=== PATIENT | male | born 1935 | race Caucasian/White ===

== ENCOUNTER 2018-08-08 16:25 | Emergency (ER) | payer MEDICARE ==
--- NOTE | 2018-08-08 19:36 | ED ---
HPI Cardiac - HPI Summary HPI Summary: This patient is a 82 year old male presenting to [facility] with a chief complaint of palpitations since 3 days ago. Patient states that he feels lousy. He states that his palpitations come accompanied with SOB and dizziness. Patient states the palpitations are not constant, but occurs regularly with exertion. Patient denies any pain related to the palpitations. Symptoms aggravated by exertion, movement. Symptoms alleviated by nothing. Patient additionally states that he has recently come off of a steroid course for his chronic back pain. Patient denies any cardiac history except HTN. - History of Current Complaint Chief Complaint: EDDysrhythmPalp Stated Complaint: HIGH HEART RATE Time Seen by Provider: 08/08/18 19:21 Hx Obtained From: Patient Onset/Duration: Started Days Ago, Still Present Timing: Intermittent Initial Severity: Mild Current Severity: None Pain Intensity: 0 Pain Scale Used: 0-10 Numeric Chest Pain Radiates: No Aggravating Factor(s): Exertion, Movement Alleviating Factor(s): Nothing Associated Signs and Symptoms: Positive: Other: - back pain, dizziness, SOB - Allergy/Home Medications Allergies/Adverse Reactions: Allergies Allergy/AdvReac Type Severity Reaction Status Date / Time No Known Allergies Allergy Verified 08/08/18 16:38 PMH/Surg Hx/FS Hx/Imm Hx Previously Healthy: Yes Cardiovascular History: Reports: Hx Hypertension Opthamlomology History: Denies: Hx Legally Blind EENT History: Denies: Hx Deafness Infectious Disease History: No Infectious Disease History: Denies: Traveled Outside the [place] in Last 30 Days - Family History Known Family History: Positive: Hypertension - Social History Alcohol Use: Rare Hx Substance Use: No Substance Use Type: Reports: None Hx Tobacco Use: Yes Smoking Status (MU): Former Smoker Review of Systems Negative: Fever Negative: Chest Pain Positive: Shortness Of Breath Positive: Other - back pain Neurological: Other - dizziness All Other Systems Reviewed And Are Negative: Yes Physical Exam - Summary Physical Exam Summary: VITAL SIGNS: Reviewed. GENERAL: Patient is a well-developed and morbidly obese male who is lying comfortable in the stretcher. Patient is not in any acute respiratory distress. HEAD AND FACE: No signs of trauma. No ecchymosis, hematomas or skull depressions. No sinus tenderness. EYES: PERRLA, EOMI x 2, No injected conjunctiva, no nystagmus. EARS: Hearing grossly intact. Ear canals and tympanic membranes are within normal limits. MOUTH: Oropharynx within normal limits. NECK: Supple, trachea is midline, no adenopathy, no JVD, no carotid bruit, no c- spine tenderness, neck with full ROM. CHEST: Symmetric, no tenderness at palpation LUNGS: Clear to auscultation bilaterally. No wheezing or crackles. CVS: Regular rate and rhythm, S1 and S2 present, no murmurs or gallops appreciated. ABDOMEN: Soft, non-tender. No signs of distention. No rebound no guarding, and no masses palpated. Bowel sounds are normal. EXTREMITIES: FROM in all major joints. 1+ bilateral lower extremity edema. NEURO: Alert and oriented x 3. No acute neurological deficits. Speech is normal and follows commands. SKIN: Dry and warm Triage Information Reviewed: Yes Vital Signs On Initial Exam: Initial Vitals Temp Pulse Resp BP Pulse Ox 98.7 F 97 18 152/82 96 08/08/18 16:34 08/08/18 16:34 08/08/18 16:34 08/08/18 16:34 08/08/18 16:34 Vital Signs Reviewed: Yes Diagnostics - Vital Signs Vital Signs Temp Pulse Resp BP Pulse Ox 08/08/18 19:00 93 13 97 08/08/18 18:48 85 15 142/77 96 08/08/18 16:34 98.7 F 97 18 152/82 96 - Laboratory Result Diagrams: 08/08/18 19:41 08/08/18 19:41 Lab Statement: Any lab studies that have been ordered have been reviewed, and results considered in the medical decision making process. - Radiology CXR Radiology Interpretation Completed By: ED Physician Summary of Radiographic Findings: No acute disease. Pending official report. - CT CTA Chest CT Interpretation Completed By: Radiologist Summary of CT Findings: CTA reveals, 1. No acute findings or evidence of pulmonary embolus to the lobar level. However, smaller peripheral vessels cannot be assessed due to bolus timing and. motion artifact. 2. 2 small right lung nodules, likely small lymph nodes. Per Fleischner. Society Criteria, if the patient has no risk factors such as smoking or cancer,. no further workup is indicated. If they do have risk factors for cancer,. followup CT is suggested in one year to assess stability. 3. Coronary artery disease. Top normal heart size. ED Physician has reviewed this report. - EKG 1644 Cardiac Rate: NL EKG Rhythm: Sinus Rhythm - 91 BPM Summary of EKG Findings: An EKG, taken 1644, reveals NSR (91 BPM), Nonspecific t wave in inferior leads, Normal intervals, normal axis. Disposition - Course Course Of Treatment: This patient is a 82 year old male presenting to [facility] with a chief complaint of palpitations since 3 days ago. Patient states that he feels lousy. He states that his palpitations come accompanied with SOB and dizziness. Patient states the palpitations are not constant, but occurs regularly with exertion. Patient denies any pain related to the palpitations. Symptoms aggravated by exertion, movement. Symptoms alleviated by nothing. Patient additionally states that he has recently come off of a steroid course for his chronic back pain. Patient denies any cardiac history except HTN.CXR reveals, No acute disease. Pending official report. CTA reveals, 1. No acute findings or evidence of pulmonary embolus to the lobar level. However, smaller peripheral vessels cannot be assessed due to bolus timing and. motion artifact. 2. 2 small right lung nodules, likely small lymph nodes. Per Fleischner. Society Criteria, if the patient has no risk factors such as smoking or cancer,. no further workup is indicated. If they do have risk factors for cancer,. followup CT is suggested in one year to assess stability. 3. Coronary artery disease. Top normal heart size. Bloodwork obtained. The patient will be discharge and will f/u with cardiology to receive a halter monitor. - Diagnoses Provider Diagnoses: Heart palpitations Discharge - Sign-Out/Discharge Documenting (check all that apply): Patient Departure - Discharge Plan Condition: Stable Disposition: HOME Patient Education Materials: Heart Palpitations (DC) Referrals: Miguel Ring DO [Medical Doctor] - As Soon As Possible Additional Instructions: Follow up with your information delivery analyst as soon as possible in order to receive a halter monitor. Follow up with your primary care physician in 1-3 days. RETURN TO THE EMERGENCY DEPARTMENT FOR CHANGING OR WORSENING SYMPTOMS. - Attestation Statements Document Initiated by Scribe: Yes Documenting Scribe: Stefany Chen Provider For Whom Scribe is Documenting (Include Credential): MD Geovanni Wilson Attestation: IStefany, scribed for Gian Car MD on 08/08/18 at 2321. Status of Scribe Document: Ready
[2018-08-08 19:51] LABS: ABS Basophils 0.1 10^3/ul (0-0.2); ABS Eosinophils 0.3 10^3/ul (0-0.6); ABS Lymphocytes 2.4 10^3/ul (1.0-4.8); ABS Monocytes 1.1 10^3/ul (0-0.8); ABS Neutrophils 7.3 10^3/ul (1.5-7.7); ABS Nucleated RBC 0 10^3/ul; Eosinophil % 2.4 %; Hematocrit 43 % (42-52); Hemoglobin 14.1 g/dl (14.0-18.0); Lymphocyte % 21.2 %; Mean Corpuscular HGB Conc 33 g/dl (31-36); Mean Corpuscular Hemoglobin 30 pg (27-31); Mean Corpuscular Volume 91 fL (80-94); Mean Platelet Volume 9.8 fL (7.4-10.4); Nucleated Red Blood Cells % 0.1; Platelet Count 149 10^3/ul (150-450); Red Blood Count 4.67 10^6/ul (4.00-5.40); Red Cell Distribution Width 15 % (10.5-15); White Blood Count 11.2 10^3/ul (3.5-10.8)
[2018-08-08 20:02] LABS: INR 0.94 (0.77-1.02)
[2018-08-08 20:10] LABS: EGFR Non-African American 58.5 (>60)
[2018-08-08] MEDS ORDERED: Iodixanol* (CONTRAST) 320 MG/ML 100 ML SDV IV ONE (21:18)
[2018-08-08 23:05] VITALS: BP 118/70
== END 2018-08-08 23:08 | disposition home or self-care (01) ==
LOC: ED 16:25
DX: R00.2 Palpitations (principal); I10 Essential (primary) hypertension; I25.10 Atherosclerotic heart disease of native coronary artery without angina pectoris; Z87.891 Personal history of nicotine dependence
CPT/HCPCS: 36415; 71045; 71275; 80053; 83735; 83880; 84443; 84484; 85025; 85379; 85610; 85730; 93005; 96374; 99283; Q9967

== ENCOUNTER 2019-10-25 08:37 | Day surgery (SDC) | payer MEDICARE ==
[~2019-10-25 08:37] MED LIST: Acetaminophen TAB* 325 MG PO PRN; Buffered Lidocaine 1% SYRIN* 1 ML/SYRINGE INTRADERM ONE
[2019-10-25] MEDS ORDERED: Cyclopentolate 1% OPTH.SOL* 2 ML BTL ONE (09:20)
[2019-10-25] MEDS ORDERED: Proparacaine 0.5% OPHTH.SOL* 15 ML BTL ONE (09:20)
[2019-10-25] MEDS ORDERED: Ketorolac 0.5% OPHTH (NF) 0.5 % 5 ML BTL ONE (09:20)
[2019-10-25] MEDS ORDERED: Neomycin/Polymy/Dex OPTH.SUSP* MAXITROL 0.1% 5 ML ONE (09:20)
[2019-10-25] MEDS ORDERED: Povidone Iodine 5% OPTH* 30 ML BTL ONE (09:20)
[2019-10-25] MEDS ORDERED: Lidocaine 1% MPF ** 5 ML VIAL ONE (09:20)
[2019-10-25] MEDS ORDERED: Phenylephrine OPHTH SOL 2.5%* 2 ML ONE (09:20)
[2019-10-25] MEDS ORDERED: acetaZOLAMIDE TAB* 250 MG ONE (09:20)
[2019-10-25] MEDS ORDERED: Lidocaine 2% w/ EPI 1:200,000* 20 ML SDV VIAL ONE (09:20)
[2019-10-25] MEDS ORDERED: Midazolam* 1 MG/ML 2 ML VIAL (2 MG) ONE (10:35)
[2019-10-25 11:33] VITALS: BP 125/59
--- NOTE | 2019-10-25 14:52 | OP ---
DATE OF OPERATION: 10/25/19 [facility] DATE OF : 35 SURGEON: Parrish Patricio M.D. PREOPERATIVE DIAGNOSIS: Cataract and glaucoma, right eye. POSTOPERATIVE DIAGNOSIS: Cataract and glaucoma, right eye. OPERATIVE PROCEDURE: Extracapsular cataract extraction with intraocular lens implant and iStent, right eye. DESCRIPTION OF PROCEDURE: The patient was brought to the operating room after being given 1/2% Alcaine with epinephrine drops in the preoperative area. The eye was prepped and draped in the usual sterile fashion. Sterile drape and eyelid speculum were placed. Again, topical 1/2% Alcaine with epinephrine was given. A paracentesis incision was made at the 9 o'clock position with the No.75 blade. Clear cornea incision 2.2 x 2.2-mm was created at the 12 o'clock position starting at the anterior limbus using the 2.2-mm keratome. The anterior chamber was irrigated with 0.4 mL of 1% non-preservative intracameral lidocaine and filled with DisCoVisc. A capsulorrhexis was completed using the cystotome and the Utrata forceps. Hydrodissection was performed with balanced salt solution. The lens nucleus was removed with the Phacoemulsification handpiece without incident. Cortex was removed with the irrigation-aspiration handpiece. The capsular bag was re-inflated using DisCoVisc and an [id number] 18.5 implant was inserted with the shooter followed by iStent inject inserted into the 2 and 4 o'clock positions with the shooter. The irrigation-aspiration handpiece was used to remove all residual DisCoVisc. The eye was refilled with balanced salt solution and the wound checked and found to be watertight. Topical Maxitrol drops were given. [id number]/[facility] #: [id number] MTDD
== END 2019-10-25 11:45 | disposition home or self-care (01) ==
LOC: OREAST 08:37
PROVIDERS: ATTEND Specialist
DX: H25.811 Combined forms of age-related cataract, right eye (principal); H40.1111 Primary open-angle glaucoma, right eye, mild stage; I10 Essential (primary) hypertension; E03.9 Hypothyroidism, unspecified; K21.9 Gastro-esophageal reflux disease without esophagitis; Z85.46 Personal history of malignant neoplasm of prostate; M10.9 Gout, unspecified; Z87.891 Personal history of nicotine dependence
CPT/HCPCS: A9270-GY; C1783; J2250; V2632

== ENCOUNTER 2019-11-01 07:07 | Day surgery (SDC) | payer MEDICARE ==
[2019-11-01] MEDS ORDERED: Propofol* 10 MG/ML 20 ML BTL ONE (08:45)
[2019-11-01] MEDS ORDERED: Lidocaine 2% PF * 5 ML VIAL ONE (08:45)
[2019-11-01] MEDS ORDERED: Phenylephrine OPHTH SOL 2.5%* 2 ML ONE (09:31)
[2019-11-01] MEDS ORDERED: Povidone Iodine 5% OPTH* 30 ML BTL ONE (09:31)
[2019-11-01] MEDS ORDERED: Ketorolac 0.5% OPHTH (NF) 0.5 % 5 ML BTL ONE (09:31)
[2019-11-01] MEDS ORDERED: Cyclopentolate 1% OPTH.SOL* 2 ML BTL ONE (09:31)
[2019-11-01] MEDS ORDERED: Lidocaine 1% MPF ** 5 ML VIAL ONE (09:31)
[2019-11-01] MEDS ORDERED: acetaZOLAMIDE TAB* 250 MG ONE (09:31)
[2019-11-01] MEDS ORDERED: Neomycin/Polymy/Dex OPTH.SUSP* MAXITROL 0.1% 5 ML ONE (09:31)
[2019-11-01] MEDS ORDERED: Proparacaine 0.5% OPHTH.SOL* 15 ML BTL ONE (09:31)
[2019-11-01] MEDS ORDERED: Lidocaine 2% w/ EPI 1:200,000* 20 ML SDV VIAL ONE (09:31)
[2019-11-01 10:01] VITALS: BP 126/53
--- NOTE | 2019-11-01 11:38 | OP ---
DATE OF OPERATION: 11/01/2019. DATE OF : 1935. SURGEON: Parrish Patricio M.D. PREOPERATIVE DIAGNOSIS: Cataract left eye. POSTOPERATIVE DIAGNOSIS: Cataract left eye. OPERATIVE PROCEDURE: Extracapsular cataract extraction with intraocular lens implant left eye. PROCEDURE: The patient was brought to the operating room after being given 1/2% Alcaine with epineph rine drops in the preoperative area. The eye was prepped and draped in the usual sterile fashion. S terile drape and eyelid speculum were placed. Again, topical 1/2% Alcaine with epinephrine was given . A paracentesis incision was made at the 3 o'clock position with the No.75 blade. Clear cornea inc ision 2.2 x 2.2-mm was created at the 6 o'clock position starting at the anterior limbus using the 2. 2-mm keratome. The anterior chamber was irrigated with 0.4 mL of 1% non-preservative intracameral li docaine and filled with DisCoVisc. A capsulorrhexis was completed using the cystotome and the Utrata forceps. Hydrodissection was performed with balanced salt solution. The lens nucleus was removed wi th the Phacoemulsification handpiece without incident. Cortex was removed with the irrigation-aspira tion handpiece. The capsular bag was re-inflated using DisCoVisc and an [id number] 19 implant was insert ed with the shooter. The irrigation-aspiration handpiece was used to remove all residual DisCoVisc. The eye was refilled with balanced salt solution and the wound checked and found to be watertight. Topical Maxitrol drops were given. [id number]/[facility] #: [id number]
== END 2019-11-01 10:05 | disposition home or self-care (01) ==
LOC: OREAST 07:07
PROVIDERS: ATTEND Specialist
DX: H25.812 Combined forms of age-related cataract, left eye (principal); H40.1111 Primary open-angle glaucoma, right eye, mild stage; Z85.46 Personal history of malignant neoplasm of prostate; K21.9 Gastro-esophageal reflux disease without esophagitis; M10.9 Gout, unspecified; Z87.891 Personal history of nicotine dependence; I10 Essential (primary) hypertension; Z68.35 Body mass index [BMI] 35.0-35.9, adult
CPT/HCPCS: A9270-GY; J2704; V2632